=== PATIENT | female | born 1970 | race Asian ===

== ENCOUNTER 2023-06-11 05:53 | Inpatient (IN) | payer OTHER, SELFPAY ==
[2023-06-11] VITALS (10 sets, daily range): BP systolic 104–166; BP diastolic 58–80; BMI 23.4
[2023-06-11 02:16] LABS: Urine Albumin Trace (Neg - Trace); Urine Bilirubin Negative (Negative); Urine Character Slightly Cloudy (Clear); Urine Color Yellow; Urine Glucose Negative (Negative); Urine Ketone Negative (Negative); Urine Leukocyte 2+ (Negative); Urine Nitrite Positive (Negative); Urine Occult Blood 1+ (Negative); Urine Urobilinogen Negative (Neg - 1+); Urine pH 6.5 (5.0-9.0)
--- NOTE | 2023-06-11 03:06 | ED.GENMED ---
History of Present Illness
<LISBET Sapp - Last Filed: 06/11/23 03:12>
General
Chief Complaint: Fever
Source: patient
Exam Limitations: none
Time Seen by Provider: 06/11/23 02:56
Nursing documentation reviewed up to this point in time: agreed with
Travel History
Have you had any contact with someone who has COVID-19?: No
Do you have any symptoms of coronavirus? Fever > 100 degrees, chills, cough, shortness of breath, sore throat, loss of taste or smell, muscle aches, or headache?: No
History of Present Illness
History of Present Illness:
patient is a 52 y/o female with PMH of kidney transplant in 2018 presenting with a fever. Patient noticed her fever this past evening when she had severe chills. Patient states she did not take her temperature but she was having severe chills at
home. Patient states she took a Tylenol at 10:30 pm. Patient admits to burning with urination. Patient denies frequency or urgency. Patient admits to mild abdominal pain. Patient states the abdominal pain was not localized. Patient admits to two
bouts of vomiting since the onset of fever. Patient denies MONTERO, SOB, CO, D/C, sore throat, cough, rhinorrhea. Patient denies any recent sick contacts. Patient denies any recent changes in medication. Patient admits the last time she ate or drank was
around 6:30pm.
Review of Systems
<LISBET Sapp - Last Filed: 06/11/23 03:12>
Review of Systems
Constitutional: Reports fever and chills
EENT: Reports no symptoms
Respiratory: Reports no symptoms
Cardiac: Reports no symptoms
ABD/GI: Reports nausea and vomiting
: Reports dysuria
Musculoskeletal: Reports no symptoms
Skin: Reports no symptoms
Neurological: Reports no symptoms
Endocrine: Reports no symptoms
Hematologic/Lymphatic: Reports no symptoms
Psychiatric: Reports no symptoms
Phy Exam
<Elda Navawson [facility] - Last Filed: 06/11/23 03:12>
General Physical Exam
General Presentation: mild distress
General age: appears stated age
General Skin: feels hot
General Habitus: normal
General Mental: alert
General Hydration: appears well hydrated
ENT Exam
ENT Exam: EOMI, pharynx normal, neck supple and normocephalic
Eye Exam
Eye Exam: PERRL, cornea clear and conjunctiva normal
Cardiovascular Exam
Cardiovascular Exam: tachycardia
Pulmonary Exam
Pulmonary Exam: lungs clear, no respiratory distress, no rales, no crackles, no rhonchi, no stridor, no wheezing and no cough
Gastrointestinal Exam
Gastrointestinal Exam: normal bowel sounds and non tender
Neurological Exam
Neurological Exam: alert, oriented x3, no motor deficits and speech normal
Musculoskeletal Exam
Musculoskeletal Exam: full ROM and no edema
Skin Exam
Skin Exam: normal color, warm/dry, no rash and no petechia
Psychiatric Exam
Psychiatric Exam: normal mood/affect
Course
<Elda Cuellar [facility] - Last Filed: 06/11/23 03:12>
Orders/Labs/Results
Orders:
Orders
06/11/23 02:08
Urinalysis Reflex To Culture Urgent
Date Specimen was Collected: 06/11/23
Time Specimen was Collected: 02:07
Urine Microscopic Reflex Cult Urgent
Urine Culture Urgent
JUSTIN Source: U
Specimen Description:
Date Specimen was Collected: 06/11/23
Time Specimen was Collected: 02:07
06/11/23 03:03
Electrocardiogram (*1) Urgent
Reason for Study: Other
Other Reason for Exam: Possible Sepsis
Cardiac Monitoring- Treatment ONCE
EKG- Treatment ONCE
IV Insert/Care/Rem.- Treatment PRN
O2 Therapy [RESP] Urgent
Titrate/Wean O2 to maintain O2 sat greater than (%): 93
Special Instructions: TO MAINTAIN CONTINUOUS O2 SATS > OR = 93%
Pulse Ox/cont/shift [RESP] Urgent
Quantity: 1
Special Instructions: CONTINUOUS
06/11/23 03:16
COVID-19 Antigen Urgent
Source: Nasal Swab
Complete Blood Count/With Diff Urgent
Comprehensive Metabolic Panel Urgent
Lactic Acid Q4H
Comment: ON ICE, CANCEL 2ND ORDER IF FIRST LACTIC ACID LEVEL <2
Blood Culture Q30M
JUSTIN Source: Blood/Venous
Specimen Description:
Comment: FROM 2 SEPARATE SITES
Blood Culture Q30M
JUSTIN Source: Blood/Venous
Specimen Description:
Comment: FROM 2 SEPARATE SITES
Influenza A+B Rapid Molecular Urgent
JUSTIN Source: Nasal Swab
Specimen Description:
Abnormal Lab Results
06/11/23 06/11/23
02:08 03:16
RBC 3.17 L 10^6/uL
(4.20-5.40)
Hgb 9.9 L g/dL
(12.0-16.0)
Hct 28.8 L %
(37.0-47.0)
MCH 31.2 H pg
(27.0-31.0)
Absolute Neuts (auto) 8.3 H 10^3/uL
(1.4-6.5)
Absolute Lymphs (auto) 0.3 L 10^3/uL
(1.2-3.4)
Neutrophils % 94.8 H %
(42.2-75.2)
Lymphocytes % 3.4 L %
(20.5-51.1)
Monocytes % 0.8 L %
(1.7-9.3)
Potassium 3.1 L mmol/L
(3.5-5.1)
BUN 49 H mg/dl
(7-17)
Creatinine 1.1 H mg/dL
(0.6-1.0)
Glucose 122 H mg/dl
(70-99)
Ur Occult Blood Reflex 1+ A
(Negative)
Urine Nitrite (Reflex) Positive A
(Negative)
Leukocyte Esterase Rfl 2+ A
(Negative)
Urine RBC 7-10 A /HPF
(0-2)
Urine WBC (Reflex) 11-15 A /HPF
(0-5)
Urine Bacteria (Reflex) Moderate A
(Negative)
06/11/23 03:16
06/11/23 03:16
Vital Signs
Initial and Last Documented VS:
Initial Vital Signs
Temp Pulse Resp BP Pulse Ox
101.4 F H 125 20 137/70 95
06/11/23 01:55 06/11/23 01:55 06/11/23 01:55 06/11/23 01:55 06/11/23 01:55
Last Documented Vital Signs
Temp Pulse Resp BP Pulse Ox
101.4 F H 109 18 121/60 95
06/11/23 01:55 06/11/23 04:30 06/11/23 03:15 06/11/23 04:00 06/11/23 01:55
<Andi Houston, DO - Last Filed: 06/11/23 05:10>
Orders/Labs/Results
Orders:
Orders
06/11/23 02:08
Urinalysis Reflex To Culture Urgent
Date Specimen was Collected: 06/11/23
Time Specimen was Collected: 02:07
Urine Microscopic Reflex Cult Urgent
Urine Culture Urgent
JUSTIN Source: U
Specimen Description:
Date Specimen was Collected: 06/11/23
Time Specimen was Collected: 02:07
06/11/23 03:03
Electrocardiogram (*1) Urgent
Reason for Study: Other
Other Reason for Exam: Possible Sepsis
Cardiac Monitoring- Treatment ONCE
EKG- Treatment ONCE
IV Insert/Care/Rem.- Treatment PRN
O2 Therapy [RESP] Urgent
Titrate/Wean O2 to maintain O2 sat greater than (%): 93
Special Instructions: TO MAINTAIN CONTINUOUS O2 SATS > OR = 93%
Pulse Ox/cont/shift [RESP] Urgent
Quantity: 1
Special Instructions: CONTINUOUS
06/11/23 03:16
COVID-19 Antigen Urgent
Source: Nasal Swab
Complete Blood Count/With Diff Urgent
Comprehensive Metabolic Panel Urgent
Lactic Acid Q4H
Comment: ON ICE, CANCEL 2ND ORDER IF FIRST LACTIC ACID LEVEL <2
Blood Culture Q30M
JUSTIN Source: Blood/Venous
Specimen Description:
Comment: FROM 2 SEPARATE SITES
Blood Culture Q30M
JUSTIN Source: Blood/Venous
Specimen Description:
Comment: FROM 2 SEPARATE SITES
Influenza A+B Rapid Molecular Urgent
JUSTIN Source: Nasal Swab
Specimen Description:
Abnormal Lab Results
06/11/23 06/11/23
02:08 03:16
RBC 3.17 L 10^6/uL
(4.20-5.40)
Hgb 9.9 L g/dL
(12.0-16.0)
Hct 28.8 L %
(37.0-47.0)
MCH 31.2 H pg
(27.0-31.0)
Absolute Neuts (auto) 8.3 H 10^3/uL
(1.4-6.5)
Absolute Lymphs (auto) 0.3 L 10^3/uL
(1.2-3.4)
Neutrophils % 94.8 H %
(42.2-75.2)
Lymphocytes % 3.4 L %
(20.5-51.1)
Monocytes % 0.8 L %
(1.7-9.3)
Potassium 3.1 L mmol/L
(3.5-5.1)
BUN 49 H mg/dl
(7-17)
Creatinine 1.1 H mg/dL
(0.6-1.0)
Glucose 122 H mg/dl
(70-99)
Ur Occult Blood Reflex 1+ A
(Negative)
Urine Nitrite (Reflex) Positive A
(Negative)
Leukocyte Esterase Rfl 2+ A
(Negative)
Urine RBC 7-10 A /HPF
(0-2)
Urine WBC (Reflex) 11-15 A /HPF
(0-5)
Urine Bacteria (Reflex) Moderate A
(Negative)
06/11/23 03:16
06/11/23 03:16
Vital Signs
Initial and Last Documented VS:
Initial Vital Signs
Temp Pulse Resp BP Pulse Ox
101.4 F H 125 20 137/70 95
06/11/23 01:55 06/11/23 01:55 06/11/23 01:55 06/11/23 01:55 06/11/23 01:55
Last Documented Vital Signs
Temp Pulse Resp BP Pulse Ox
101.4 F H 109 18 121/60 95
06/11/23 01:55 06/11/23 04:30 06/11/23 03:15 06/11/23 04:00 06/11/23 01:55
<LISBET Sapp - Last Filed: 06/11/23 03:12>
MDM/Problems Addressed
Differential Diagnosis Includes:
acute cystitis
pyelonephritis
viral infection
MDM/Problems Addressed:
fever
Rafaellt;LISBET Sapp - Last Filed: 06/11/23 03:12>
*Critical Care Note
Total Time (30-74mins, 75-104mins- exclusive of procedures): Not Applicable
ED Attending Note
<Elda LISBET Cuellar - Last Filed: 06/11/23 03:12>
-
Portions of this chart may have been created with voice recognition software.� Occasional wrong word or��sound alike� substitutions may have occurred due to the inherent limitations of voice recognition software.
<Andi Houston DO - Last Filed: 06/11/23 05:10>
ED Attending Note
Patient seen and examined by attending physician: Yes
I performed the substantive portion of visit, reviewed & personally made and approve the management plan that is documented in note by myself or IGGY.: Yes
ED Attending Note:
Pleasant 52-year-old female presents with fever and dysuria. She also had chills while at home. She took Tylenol and admitted to burning with urination. Patient had a kidney transplant in 2018 at [facility] is concerned that she
might have a UTI. She did report some mild abdominal pain. Patient did report some vomiting earlier in the evening. Patient has been n.p.o. due to her symptoms since 630. Patient was seen in conjunction with the PA student. I have reviewed and
agree with the history and treatment plan presented. On my independent physical exam, patient is awake, alert, and oriented x3 somnolent. Skin is flushed. Abdomen is soft with generalized tenderness to palpation. Moves all 4 extremities.
present at bedside.
Plan is to admit patient to hospital service for UTI with a kidney transplant.
Discharge Plan
Departure
Patient Disposition: Admit
Date of Disposition: 06/11/23
Time of Disposition: 05:07
Presentation/result/management discussed w/ accepting MD/DO: Hospitalist
Condition: Good
Discharge Problem:
UTI (urinary tract infection), Kidney transplanted
Referrals:
PRIVATE,PHYSICIAN [Family Provider] -
Interventions
Interventions:
*Risk Screen - Suicide Last Done: 06/11/23 01:55
*General Assessment Last Done: 06/11/23 03:38
*Neglect/Abuse Screening Last Done: 06/11/23 01:55
ED- Fall Risk Assessment Last Done: 06/11/23 03:36
*ED COVID-19 Vaccine History Last Done: 06/11/23 01:55
ED- Neurological Assessment Last Done: 06/11/23 03:36
ED-Skin Assessment Last Done: 06/11/23 03:36
Discharge Date and Time
Print Language: INDONESIAN
[2023-06-11 03:26] LABS: % Basophils 0.5 % (0-2); % Eosinophils 0.2 % (0-6); % Immature Granulocytes 0.3 % (0-0.5); % Lymphocytes 3.4 % (20.5-51.1); % Monocytes 0.8 % (1.7-9.3); % Neutrophils 94.8 % (42.2-75.2); Absolute Lymphocytes 0.3 10^3/uL (1.2-3.4); Absolute Monocytes 0.1 10^3/uL (0.1-0.6); Absolute Neutrophils 8.3 10^3/uL (1.4-6.5); Hematocrit 28.8 % (37.0-47.0); Hemoglobin 9.9 g/dL (12.0-16.0); Mean Corp Hgb Conc. 34.4 g/dL (33.0-37.0); Mean Corpuscular Hgb 31.2 pg (27.0-31.0); Mean Corpuscular Volume 90.9 fL (81.0-99.0); Mean Platelet Volume 9.7 fL (7.4-10.4); Nucleated Red Blood Cells % 0 %; Platelet Count 164 10^3/uL (130-400); Red Blood Cell Count 3.17 10^6/uL (4.20-5.40); Red Cell Dist. Width 12.6 % (11.5-14.5); White Blood Cell Count 8.8 10^3/uL (4.8-10.8)
[2023-06-11 03:26] LABS: Urine Squamous Cell 0-2 /LPF (Few)
[2023-06-11 03:29] LABS: Urine Bacteria Moderate (Negative)
[2023-06-11 03:42] LABS: ALT (SGPT) 15 U/L (0-35); AST (SGOT) 21 U/L (14-36); Alkaline Phosphatase 85 U/L (38-126); Blood Urea Nitrogen 49 mg/dl (7-17); Carbon Dioxide 24 mmol/L (22-30); Chloride 105 mmol/L (98-107); Glucose 122 mg/dl (70-99); Potassium 3.1 mmol/L (3.5-5.1); Sodium 141 mmol/L (135-145); Total Bilirubin 0.8 mg/dl (0.2-1.3); Total Protein 6.7 g/dl (6.3-8.2); eGFR > 60.00
[2023-06-11 03:53] LABS: COVID-19 Antigen Negative (Negative)
[2023-06-11] MEDS: TYLENOL 650 MG PO ×4 (05:21→21:45)
[2023-06-11] MEDS: MAXIPIME 2000 MG IV ×3 (05:21→21:39)
[2023-06-11] MEDS: GENTAMICIN 53.125 MG IV (05:31)
--- NOTE | 2023-06-11 05:35 | HPS.HSE ---
Family Physician
-
Family Physician: PHYSICIAN PRIVATE
Chief Complaint
-
chill and fever
History of Present Illness
52F from Home HX Kidney TP since 2018 pw severe chills and feverish last evining at home. Did not check temp but took tylenol. At ER T 101.4. Reports dysuria but no frequency. Noted associated with abdominal pain and vomited x 2.
ROS
Denies MONTERO, SOB, CO, D/C, sore throat, cough, rhinorrhea.
No recent sick contacts.
Medical History
Past Medical History
Past Medical History: Reports Other (Kidney TP since 2018 )
Past Surgical History: Reports Other (Kidney TP since 2018 [facility] )
Social History
Tobacco: Non-smoker
Alcohol: None
Family History
Family History: Not pertinent
Allergies / Home Medications
Allergies reflects when Allergies were last updated in [email or web address].
Home Medications with original date entered in [email or web address]
Allergy/Medication List:
Allergies
Allergy/AdvReac Type Severity Reaction Status Date / Time
No Known Allergies Allergy Unverified 06/11/23 01:54
If Other, explain: Pending Rx reconcilliation
Review of Systems
-
Constitutional: Reports Fever and Chills
EENT: Reports No Symptoms
Respiratory: Reports No Symptoms
Cardiac: Reports No Symptoms
Abdomen/GI: Reports Abdominal Pain
: Reports No Symptoms
Musculoskeletal: Reports No Symptoms
Skin: Reports No Symptoms
Neurological: Reports No Symptoms
Endocrine: Reports No Symptoms
Hematologic/Lymphatic: Reports No Symptoms
Psych: Reports No Symptoms
Physical Exam
Vital Signs
Vital Signs
Temp Pulse Resp BP Pulse Ox
101.4 F H 109 18 121/60 95
06/11/23 01:55 06/11/23 04:30 06/11/23 03:15 06/11/23 04:00 06/11/23 01:55
Physical Exam
General: Appears in Distress (mild) and Other (puffy face )
HEENT: NormoCephalic, Anicteric and Moist mucous membranes
Respiratory: Clear; No Wheezes, Rales or Rhonchi
Cardiac: S1/S2, Regular Rhythm and Tachycardia; No Murmur
Breast: Deferred by me
GI: Soft, Non Tender, Non Distended and Normal Bowel Sounds
Rectal: Deferred by Provider
Musculoskeletal: No Edema
Skin: Warm and Dry
Neuro: AO x 3
Psych: Calm
Laboratory Results
-
06/11/23 03:16
06/11/23 03:16
Laboratory Results
Lactic Acid Cancelled 06/11/23 07:15
Total Bilirubin 0.8 mg/dl (0.2-1.3) 06/11/23 03:16
AST 21 U/L (14-36) 06/11/23 03:16
ALT 15 U/L (0-35) 06/11/23 03:16
Alkaline Phosphatase 85 U/L (38-126) 06/11/23 03:16
Data Reviewed
-
Medical Tests (Nuc Med, Echo, EKG etc): Report Reviewed by me
Lab Data: Labs Reviewed by me
Impression/Plan
-
Reviewed VS: T 101.4 HR 110 BP 120/60 RR 18
Data
nl WCC
Hgb 9.9 - no prior Hgb in [employer]
K 3.1
BUN 49
Cr 1.1
eGFR > 60
nl LFTs
Abn UA suspect UTI
UCx sent
BCx sent
NEG Covid
Pending EKG
No prior admission to
ASSESSMENT & PLAN
Sepsis ( T 101.4, ST 110) due to complicated UTI
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
Normal RFTs
- agree with IV CFP 2gm q8h
- IVF
- f/u VSS
- f/u UCx, BCx
- ID consult
Anemia of uncertain chronicity
- Observe Hgb
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
- Obtain records from [facility]
- Renal consult
Pending Rx reconciliation
DVT Px: SCD
Code: Full code
IP TLM
[2023-06-11] MEDS: NSS 1000 IV ×2 (07:55→21:52)
[2023-06-11] MEDS: KCL 270 MEQ IV (08:11)
[2023-06-11 08:20] LABS: Lactic Acid 1.3 mmol/L (0.7-2.0)
[2023-06-11] MEDS: DELTASONE 5 MG PO (08:58)
[2023-06-11] MEDS: NEORAL 50 MG PO (08:58)
[2023-06-11] MEDS: NEORAL 100 MG PO ×2 (08:58→20:28)
--- NOTE | 2023-06-11 11:04 | W.PN.UPDATE ---
Update Note
Progress Note Update
Seen and examined independent of overnight physician. Patient states of nausea. Mild abdominal discomfort. Had bowel movement earlier today. States of dysuria. Denies any flank or back pain. No sick contact.
General in mild acute distress, eyes closed
Cardiac S1-S2 regular rate rhythm
Lungs clear to auscultation frontally
Abdomen positive bowel sounds soft nontender nondistended
Extremities no edema
Neuro awake alert and oriented
#Sepsis likely secondary to UTI
#Chronic immunosuppressant state
#On chronic prednisone
Lactic acid within normal limits
Continue with gentle IV fluids
Monitor blood pressure closely. If any episodes of hypotension will need to start stress dose steroids. Holding BP meds for now.
Continue with cefepime
No imaging done. Check renal bladder ultrasound
ID has been consulted
Follow-up on the culture data
#Nausea and vomiting likely secondary gastroenteritis
Check abdominal x-ray for now
If no improvement check CT abdomen pelvis without IV contrast
#Anemia
Unclear baseline
Check anemia panel
#Renal transplant 2018
#Elevated creatinine�unclear baseline
Continue prednisone and cyclosporine
IV fluids
Nephrology has been consulted
#Hyperlipidemia
Continue statin
#Primary hypertension
Hold BP meds for now
#Hypokalemia
Replete and monitor
DVT ppx-started lovenox
Discussed with at bedside in detail
[2023-06-11 11:32] LABS: Iron 35 ug/dl (37-170)
[2023-06-11 11:41] LABS: Percent Saturation 12 % (20-50); Total Iron Binding Capacity 287 ug/dl (265-497)
[2023-06-11 12:41] LABS: Folate 10.2 ng/ml (2.76-20); Vitamin B12 831 pg/ml (239-931)
--- NOTE | 2023-06-11 13:00 | W.CON.NEPH ---
Consultation
-
Date/Time Consultation Requested: June 11, 2023 9 AM
Date/Time Consultation Performed: June 11, 2023 1 PM
Requesting Provider: Dr. Davis
Performing Provider: Dr. Carranza
Reason for Consultation: Renal transplant
Medical History
-
Chief Complaint: Renal transplant
History of Present Illness:
This is a 52-year-old female who has met in the past who underwent living unrelated renal transplant back in 2018 at [facility] as part of a kidney swap with her and another pair. They do not recall details of that
transplant though she has always been maintained on only cyclosporine and prednisone. She has had no episodes of rejection in the last 6 years. Recently, she has had 2 urinary tract infections. She has hypertension on a multidrug regimen which is
typically well-controlled as well as statin therapy for hyperlipidemia. This is usually also controlled. She had previously been on Cinacalcet for tertiary hyperparathyroidism though this had subsequently resolved. She came to the emergency room
and was admitted because of fevers and infection/sepsis. 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
Past Medical History
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
Social History
Tobacco: Non-Smoker
Alcohol: None
Family History
Family History: Not Pertinent
Allergies / Home Medications
Allergy/AdvReac Type Severity Reaction Status Date / Time
No Known Allergies Allergy Unverified 06/11/23 01:54
�Medication �Instructions �Recorded �Confirmed �Type
cyclosporine modified 50 mg capsule 150 mg PO BID 06/11/23 06/11/23 History
losartan 50 mg tablet 50 mg PO DAILY 06/11/23 06/11/23 History
nifedipine 30 mg tablet,extended 30 mg PO DAILY 06/11/23 06/11/23 History
release
prednisone 5 mg tablet 5 mg PO DAILY 06/11/23 06/11/23 History
rosuvastatin 5 mg tablet 5 mg PO DAILY 06/11/23 06/11/23 History
Review of Systems
-
Fevers and chills. Mild nausea. No issues with urination. No pain over transplanted kidney. No shortness of breath or chest pain. The remainder of the complete review of systems was negative
Physical Exam
Vital Signs
Vital Signs
Temp Pulse Resp BP Pulse Ox
98 F 105 18 127/71 92
06/11/23 11:42 06/11/23 11:42 06/11/23 11:42 06/11/23 11:42 06/11/23 11:42
Lab Results
WBC 8.8 10^3/uL (4.8-10.8) 06/11/23 03:16
RBC 3.17 10^6/uL (4.20-5.40) L 06/11/23 03:16
Hgb 9.9 g/dL (12.0-16.0) L 06/11/23 03:16
Hct 28.8 % (37.0-47.0) L 06/11/23 03:16
Plt Count 164 10^3/uL (130-400) 06/11/23 03:16
Sodium 141 mmol/L (135-145) 06/11/23 03:16
Potassium 3.1 mmol/L (3.5-5.1) L 06/11/23 03:16
Chloride 105 mmol/L (98-107) 06/11/23 03:16
Carbon Dioxide 24 mmol/L (22-30) 06/11/23 03:16
BUN 49 mg/dl (7-17) H 06/11/23 03:16
Creatinine 1.1 mg/dL (0.6-1.0) H 06/11/23 03:16
eGFR > 60.00 06/11/23 03:16
Glucose 122 mg/dl (70-99) H 06/11/23 03:16
Calcium 10.0 mg/dl (8.4-10.2) 03/29/24 03:16
Albumin 4.0 g/dl (3.5-5.0) 06/11/23 03:16
Physical Exam
General: AOx3 and No Distress
HEENT: PERRL, EOMI, Anicteric, Oropharynx Clear/Moist, Neck Supple, Trachea Midline, No JVD and No Thyromegaly
Respiratory: Clear
Abdomen: Soft, Nontender, Nondistended, Normal Bowel Sounds and No Hepatosplenomegaly
Skin: No Rash, No Cyanosis and Normal Turgor
Psych: Mood/afflect pleasant and Insight/judgement good
Assessment/Plan
-
Assessment:
Acute kidney injury
Living unrelated renal transplant right lower [facility] 2007 baseline creatinine 0.8
Hypertension
Hyperlipidemia
Fever
Assessment:
Cultures are pending.
Empiric antibiotics
Follow basic metabolic panel
She reports ciclosporin to be 125 mg twice daily which I will adjust. A cyclosporine trough level will be ordered.
Cyclosporine and prednisone will be continued.
Losartan will be continued for the time being.
IV fluids with saline will be continued
Check fractional excretion of sodium
Data Reviewed
-
Radiology: Image Personally Visualized and interpreted (Abdominal x-ray on June 11, 2023 by my reading shows no obstruction, no air-fluid levels)
Medical Tests (Nuc Med, Echo etc): Image Personally Visualized and interpreted (EKG on June 11, 2023 by my reading shows sinus tachycardia LVH inferior ST-T wave abnormalities)
Labs: Labs Reviewed by me
Old Records: Reviewed
[2023-06-11] MEDS: STERILE WATER FOR INJECTION 10 ML IV ×2 (13:54→21:39)
--- NOTE | 2023-06-11 14:25 | CON.ID ---
Consultation
-
Date/Time Consultation Requested: 06/11/2023 07:40
Date/Time Consultation Performed: 06/11/2023 1421
Requesting Provider: Dr. Davis
Performing Provider: Dr. See
Reason for Consultation: Sepsis
Chief Complaint / Past History
History of Present Illness
Frances Cuellar is a 52-year-old female with a significant past medical history of renal transplant (2018) being evaluated in regards to fever. History is obtained from chart review, along with patient interview.
Patient presenting usual state of health until day before admission when she developed severe chills while at home. She also admits to dysuria over the 24 hours prior to admission, but denied any frequency or urgency. She admits to mild abdominal
discomfort which was nonlocalizing. No History of Discomfort over the Transplant. She admits to 2 episodes of vomiting. No History of Rigors. Positive Temperature to 101 Degrees.
Workup in the ER revealed a normal white count although urinalysis showed pyuria. Blood cultures obtained at the time of admission are now positive for gram-negative rods, and Infectious Diseases is asked to comment upon further antimicrobial
therapy.
Past History
Additional Past Medical History:
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
HTN
Dyslipidemia
Additional Past Surgical History:
Renal transplant (2018; [facility])
LUE AV fistula
Allergy History:
No Known Allergies Allergy (Unverified 06/11/23 01:54)
Medications Reviewed: Yes
Current Antibiotics:
Cefepime 2 g IV every 8 hours
Gentamicin x 1
Social History
Tobacco: Non-Smoker
Alcohol: None
Drug: None
Review of Systems
Vital Signs
Temp Pulse Resp BP Pulse Ox
98 F 105 18 127/71 92
06/11/23 11:42 06/11/23 11:42 06/11/23 11:42 06/11/23 11:42 06/11/23 11:42
Physical Exam
Physical Exam
Constitutional: No Acute Distress, Well Developed, Comfortable and Non-toxic
Head: Normocephalic
Eyes: Pupils Equal, Pupils Round, No Conjunctival Hemorrhage and Sclera Anicteric
Oral: No Thrush and No Ulcers
Cardiovascular: Regular Rate and S1/S2; Negative S3/S4
Pulmonary: Clear; Negative Wheezes, Rales or Rhonchi
Gastrointestinal: Soft, Non Tender, Non Distended, Normal Bowel Sounds, No Rebound, No Guarding and Other (No tenderness over transplant.)
Genito-Urinary: Negative Jack
Extremities: Negative Edema, Cyanosis, Erythema, Splinter Hemorrhage or Venous Insufficiency
Skin: Warm and Dry; Negative Rash or Jaundice
Neurological: Awake, Alert and Oriented
Psychological: Calm
.
Lab / Diagnostic Study Results
06/11/23 03:16
06/11/23 03:16
Abs Immat Gran (auto) 0.0 10^3/uL (0-0.05) 06/11/23 03:16
Absolute Neuts (auto) 8.3 10^3/uL (1.4-6.5) H 06/11/23 03:16
Absolute Lymphs (auto) 0.3 10^3/uL (1.2-3.4) L 06/11/23 03:16
Absolute Monos (auto) 0.1 10^3/uL (0.1-0.6) 06/11/23 03:16
Absolute Basos (auto) 0.0 10^3/uL (0-0.2) 06/11/23 03:16
Immature Gran % 0.3 % (0-0.5) 06/11/23 03:16
Neutrophils % 94.8 % (42.2-75.2) H 06/11/23 03:16
Lymphocytes % 3.4 % (20.5-51.1) L 06/11/23 03:16
Monocytes % 0.8 % (1.7-9.3) L 06/11/23 03:16
Eosinophils % 0.2 % (0-6) 06/11/23 03:16
Basophils % 0.5 % (0-2) 06/11/23 03:16
Lactic Acid Cancelled 06/11/23 19:40
Ur Squamous Epith Cells 0-2 /LPF (Few) 06/11/23 02:08
Microbiology Results
Micro:
06/11/23 03:16 Blood Culture - Preliminary
Blood/Venous Positive culture in progress
Gram Stain - Final
06/11/23 03:16 Blood Culture - Preliminary
Blood/Venous Positive culture in progress
Gram Stain - Preliminary
06/11/23 03:16 Influenza Types A & B (CALVIN) - Final
Nasal Swab Negative for Influenza A & B, NAAT
Negative results must be combined with clinical observations
and patient history.
Nucleic Acid Amplification test (NAAT)performed on the
[employer] NOW platform.
06/11/23 02:08 Urine Culture - Pending
Urine
Imaging:
06/11/2023 abdominal x-ray: No abnormal intestinal dilatation or air-fluid levels identified. Air and stool seen in the level of the rectum. Please see full dictation for additional detail.
Assessment / Plan
Bacteremia
Fevers/chills
Suspected complicated urinary tract infection
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
HTN
Dyslipidemia
Recommendations:
Continue with cefepime, although decreased dose to 2 g IV every 12 hours.
Repeat blood cultures.
Check ultrasound of abdomen to assess for hydronephrosis
Monitor white count and temperature curve
--- NOTE | 2023-06-11 14:53 | CM ---
Alert awake oriented patient who lives with Quan in a 2 story home with 1 step to enter and 12 steps to bed room . She is independent in driving and all activities of daily living.No DME. Offered VN she declined.
No SNF/VN hx
Pharmacy [facility]
PCP Dr Allen
PLAN Home no needs
--- NOTE | 2023-06-11 16:07 | PTCARENOTE ---
Dr. Sarkar notified about BP of 162/80. Would like to monitor for now.
[2023-06-11] MEDS: LOVENOX 40 MG SC (17:09)
[2023-06-11] MEDS: NEORAL 25 MG PO (20:28)
[2023-06-12] MEDS: TYLENOL 650 MG PO ×2 (02:18→10:50)
[2023-06-12 03:00] VITALS: BP 143/80
[2023-06-12] MEDS: MAXIPIME 2000 MG IV ×3 (05:51→21:02)
[2023-06-12] MEDS: STERILE WATER FOR INJECTION 10 ML IV ×3 (05:51→21:02)
[2023-06-12 06:00] VITALS: BMI 23.9
[2023-06-12 07:29] VITALS: BP 137/78
[2023-06-12 08:21] LABS: Hematocrit 29.7 % (37.0-47.0); Hemoglobin 10.3 g/dL (12.0-16.0); Mean Corp Hgb Conc. 34.7 g/dL (33.0-37.0); Mean Corpuscular Hgb 31.7 pg (27.0-31.0); Mean Corpuscular Volume 91.4 fL (81.0-99.0); Nucleated Red Blood Cells % 0 %; Red Blood Cell Count 3.25 10^6/uL (4.20-5.40); White Blood Cell Count 16.5 10^3/uL (4.8-10.8)
[2023-06-12] MEDS: NEORAL 25 MG PO ×2 (08:31→20:48)
[2023-06-12] MEDS: NEORAL 100 MG PO ×2 (08:31→20:47)
[2023-06-12] MEDS: CRESTOR 5 MG PO (08:32)
[2023-06-12] MEDS: PROCARDIA XL (EXTENDED RELEASE) 30 MG PO (08:32)
[2023-06-12] MEDS: DELTASONE 5 MG PO (08:32)
[2023-06-12 08:37] LABS: ALT (SGPT) 15 U/L (0-35); AST (SGOT) 25 U/L (14-36); Albumin 3.3 g/dl (3.5-5.0); Alkaline Phosphatase 68 U/L (38-126); Blood Urea Nitrogen 37 mg/dl (7-17); Calcium 8.6 mg/dl (8.4-10.2); Carbon Dioxide 16 mmol/L (22-30); Chloride 113 mmol/L (98-107); Estimated Creatinine Clearance 31 ml/min; Glucose 90 mg/dl (70-99); Potassium 4.7 mmol/L (3.5-5.1); Sodium 136 mmol/L (135-145); Total Bilirubin 1.2 mg/dl (0.2-1.3); Total Protein 5.8 g/dl (6.3-8.2); eGFR 33.27
[2023-06-12] MEDS: NSS 1000 IV (10:50)
--- NOTE | 2023-06-12 11:35 | W.PN.HOSP.TC ---
Today's Communication/Plan
-
IV fluid per nephrology
Continue with antibiotic
Follow-up on the susceptibility results
Follow-up on the surveillance cultures
Assessment / Plan
Assessment / Plan
#Sepsis likely secondary to E. coli pyelonephritis leading to bacteremia
#Chronic immunosuppressant state
#On chronic prednisone
Lactic acid within normal limits
Continue with gentle IV fluids
Monitor blood pressure closely. If any episodes of hypotension will need to start stress dose steroids. Holding BP meds for now.
Continue with cefepime
CT abdomen pelvis with pyelonephritis of renal transplant
ID has been consulted
Follow-up on the culture data
#Nausea and vomiting likely secondary gastroenteritis versus pyelonephritis pain
IV fluids per nephrology
Monitor for diet tolerance
#Anemia
Unclear baseline
Check anemia panel
#Renal transplant 2018
# Acute kidney injury
# Metabolic acidosis likely secondary to acute kidney injury and vomiting
Continue prednisone and cyclosporine
IV fluids
Creatinine bumped to 1.8.
May need to consider switching to bicarb drip. Will defer to nephrology
Nephrology has been consulted
#Hyperlipidemia
Continue statin
#Primary hypertension
Restart Procardia as blood pressure tolerated
Will defer losartan to nephrology
#Hypokalemia
Replete and monitor
DVT ppx-started lovenox
Discussed with at bedside in detail
Anticipated Discharge: > 48 hours
Subjective/Interval History
-
Date of Service: June 12, 2023
States of lower abdominal discomfort
Remains with nausea and vomiting
Had regular soft bowel movement
Denies diarrhea
Objective Data
-
Labs:
Laboratory Results
06/12/23
08:14
WBC 16.5 H
Hgb 10.3 L
Hct 29.7 L
Plt Count Pending
Sodium 136
Potassium 4.7 D
Chloride 113 H
Carbon Dioxide 16 L
BUN 37 H
Creatinine 1.8 H
Glucose 90
Calcium 8.6
Total Bilirubin 1.2
AST 25
ALT 15
Alkaline Phosphatase 68
Vital Signs:
Vital Signs
Temp Pulse Resp BP Pulse Ox
99.6 F 93 16 137/78 94
06/12/23 07:29 06/12/23 07:29 06/12/23 07:29 06/12/23 07:29 06/12/23 07:29
I&O
06/11/23 06/12/23 06/13/23
06:59 06:59 06:59
Intake Total 1759 / 1759
Balance 1759
Physical Exam
-
General: Well Developed and No Apparent Distress
HEENT: Normocephalic, Atraumatic and Moist Mucous Membranes
Respiratory: Clear to Auscultation
Cardiac: Regular Rhythm and S1/S2; Negative Murmur, Rub or Gallop
GI: Soft, Nontender, Nondistended and Normal Bowel Sounds; Negative Organomegaly
Rectal: Deferred by Provider
Musculoskeletal: No Clubbing, No Cyanosis and No Edema
Skin: Negative Rash
Neuro: Awake, AO x 3, No Motor Deficits and Nonfocal/Grossly Intact
Psych: Calm
Data Reviewed
-
Total Time Spent with Patient (in minutes): 62
[2023-06-12 11:49] VITALS: BP 117/63
--- NOTE | 2023-06-12 12:43 | W.PN.NEPH.PH ---
Today's Communication / Plan
-
IVF
Assessment/Plan
-
Assessment:
Acute kidney injury
Living unrelated renal transplant right lower quadrant [facility] 2007 baseline creatinine 0.8
Hypertension
Hyperlipidemia
Fever
Assessment:
rapid growth of E coli in blood and urine
cephalosporins for Ecoli
Follow basic metabolic panel
Await cyclosporine trough level
Cyclosporine and prednisone will be continued
hold losartan
IV fluids with saline will be continued
Check fractional excretion of sodium
no significant hydro of tx
-
-
Date of Service: June 12, 2023
CC / HPI / ROS
-
Chief Complaint:
CORAL
History of Present Illness:
COARL/Cr worse to 1.8
on abx for e coli urosepsis
BP stable
now with metabolic acidosis
Review of Systems:
no CP/SOB
some abdominal discomfort
Labs
-
Labs:
WBC 16.5 10^3/uL (4.8-10.8) H 06/12/23 08:14
RBC 3.25 10^6/uL (4.20-5.40) L 06/12/23 08:14
Hgb 10.3 g/dL (12.0-16.0) L 06/12/23 08:14
Hct 29.7 % (37.0-47.0) L 06/12/23 08:14
Sodium 136 mmol/L (135-145) 06/12/23 08:14
Potassium 4.7 mmol/L (3.5-5.1) D 06/12/23 08:14
Chloride 113 mmol/L (98-107) H 06/12/23 08:14
Carbon Dioxide 16 mmol/L (22-30) L 06/12/23 08:14
BUN 37 mg/dl (7-17) H 06/12/23 08:14
Creatinine 1.8 mg/dL (0.6-1.0) H 06/12/23 08:14
eGFR 33.27 06/12/23 08:14
Glucose 90 mg/dl (70-99) 06/12/23 08:14
Calcium 8.6 mg/dl (8.4-10.2) 06/12/23 08:14
Albumin 3.3 g/dl (3.5-5.0) L 06/12/23 08:14
Physical Exam
-
Vital Signs:
Vital Signs
Temp Pulse Resp BP Pulse Ox
99.8 F 109 18 117/63 93
06/12/23 11:49 06/12/23 11:49 06/12/23 11:49 06/12/23 11:49 06/12/23 11:49
Cardiovascular:: Regular rate and rhythm
Respiratory:: Bilateral: Coarse
Lung Excursion:: Normal
Abdomen:: Nontender and Soft
Bowel Sounds:: Normal
Extremity Edema:: None: Bilateral:
[2023-06-12 12:59] LABS: Platelet Count 112 10^3/uL (130-400)
[2023-06-12 13:00] LABS: Mean Platelet Volume 9.7 fL (7.4-10.4)
[2023-06-12 13:01] LABS: Absolute Neutrophils -Man Diff 15.3 10^3/uL (1.4-6.5); Band Neutrophils 25 % (0-3); Eosinophils 1 % (0-6); Lymphocytes 4 % (20-51); Monocytes 2 % (2-9); Normal RBC Morphology Yes; Platelets Checked YES; Segmented Neutrophils 68 % (42-75)
[2023-06-12 13:02] LABS: Total Cells Counted 100
--- NOTE | 2023-06-12 13:28 | W.PN.ID1 ---
Date of Service
Date of Service: June 12, 2023
Today's Communication
Continue antibiotics.
Assessment / Plan
Bacteremia with E. coli
Fevers/chills
Suspected complicated urinary tract infection secondary to E. coli
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
HTN
Dyslipidemia
Recommendations:
Continue with cefepime
Repeat blood cultures pending.
Await further culture data to guide antimicrobial selection and de-escalation.
Monitor white count and temperature curve
Chief Complaint
-: UTI and Bacteremia
Subjective / Review of Systems
Review of Systems: No Fever
Vital Signs / Physical Exam
Vital Signs
Vital Signs
Temp Pulse Resp BP Pulse Ox
99.8 F 109 18 117/63 93
06/12/23 11:49 06/12/23 11:49 06/12/23 11:49 06/12/23 11:49 06/12/23 11:49
Physical Exam
Constitutional: Acutely Ill and Non-toxic
Pulmonary: Non Labored
Gastrointestinal: Non Distended
Skin: Negative Rash or Jaundice
Neurological: Other (Resting comfortably; easily arousable.)
Psychological: Calm
Objective Data
Lab Data
Lab Results
06/12/23 08:14
06/12/23 08:14
Estimated Creat Clear 31 ml/min 06/12/23 08:14
Lactic Acid Cancelled 06/11/23 19:40
Total Bilirubin 1.2 mg/dl (0.2-1.3) 06/12/23 08:14
AST 25 U/L (14-36) 06/12/23 08:14
ALT 15 U/L (0-35) 06/12/23 08:14
Alkaline Phosphatase 68 U/L (38-126) 06/12/23 08:14
Most recent labs reviewed.
Micro Results:
06/11/23 03:16 Blood Culture - Preliminary
Blood/Venous Escherichia coli
Gram Stain - Final
06/11/23 03:16 Blood Culture - Preliminary
Blood/Venous Escherichia coli
Gram Stain - Final
06/11/23 02:08 Urine Culture - Preliminary
Urine Escherichia coli
06/11/23 16:49 Blood Culture - Pending
Blood/Venous
06/11/23 16:01 Blood Culture - Pending
Blood/Venous
06/11/23 03:16 Influenza Types A & B (CALVIN) - Final
Nasal Swab Negative for Influenza A & B, NAAT
Negative results must be combined with clinical observations
and patient history.
Nucleic Acid Amplification test (NAAT)performed on the
[employer] platform.
Imaging:
06/11/2023 abdominal x-ray: No abnormal intestinal dilatation or air-fluid levels identified. Air and stool seen in the level of the rectum. Please see full dictation for additional detail.
[2023-06-12 15:21] VITALS: BP 104/61
[2023-06-12 17:29] LABS: Urine Sodium 63 mmol/L (30-90)
[2023-06-12] MEDS: LOVENOX 40 MG SC (17:32)
[2023-06-12 19:17] VITALS: BP 126/68
[2023-06-12 23:52] VITALS: BP 151/82
[2023-06-13] MEDS: NSS 1000 IV (00:09)
[2023-06-13] MEDS: TYLENOL 650 MG PO ×2 (00:10→09:22)
[2023-06-13 03:02] VITALS: BP 156/85
[2023-06-13] MEDS: MAXIPIME 2000 MG IV (05:10)
[2023-06-13] MEDS: STERILE WATER FOR INJECTION 10 ML IV (05:11)
[2023-06-13 06:00] VITALS: BMI 24.3
[2023-06-13 07:10] VITALS: BP 146/80
[2023-06-13 08:50] LABS: Blood Urea Nitrogen 30 mg/dl (7-17); Calcium 8.3 mg/dl (8.4-10.2); Carbon Dioxide 14 mmol/L (22-30); Chloride 113 mmol/L (98-107); Estimated Creatinine Clearance 40 ml/min; Glucose 76 mg/dl (70-99); Potassium 4.4 mmol/L (3.5-5.1); Sodium 135 mmol/L (135-145); eGFR 44.99
[2023-06-13] MEDS: CRESTOR 5 MG PO (09:04)
[2023-06-13] MEDS: NEORAL 25 MG PO ×2 (09:04→20:21)
[2023-06-13] MEDS: PROCARDIA XL (EXTENDED RELEASE) 30 MG PO (09:04)
[2023-06-13] MEDS: NEORAL 100 MG PO ×2 (09:04→20:21)
[2023-06-13] MEDS: DELTASONE 5 MG PO (09:05)
[2023-06-13] MEDS: SODIUM BICARBONATE 1150 MEQ IV (09:22)
[2023-06-13 11:24] VITALS: BP 105/64
--- NOTE | 2023-06-13 11:24 | W.PN.NEPH.PH ---
Today's Communication / Plan
-
IVF
Assessment/Plan
-
Assessment:
Acute kidney injury
Living unrelated renal transplant right lower quadrant [facility] 2007 baseline creatinine 0.8
Hypertension
Hyperlipidemia
Fever
NAGMA
Assessment:
cephalosporins for Ecoli
Follow basic metabolic panel
Await cyclosporine trough level
Cyclosporine and prednisone will be continued
hold losartan still
IV fluids with bicarb
po bicarb as well
-
-
Date of Service: June 13, 2023
CC / HPI / ROS
-
Chief Complaint:
CORAL
History of Present Illness:
CORAL/Cr down to 1.4
on abx for e coli urosepsis
BP stable
now with metabolic acidosis, worse 14
Review of Systems:
no CP/SOB
some abdominal discomfort
Labs
-
Labs:
WBC 16.5 10^3/uL (4.8-10.8) H 06/12/23 08:14
RBC 3.25 10^6/uL (4.20-5.40) L 06/12/23 08:14
Hgb 10.3 g/dL (12.0-16.0) L 06/12/23 08:14
Hct 29.7 % (37.0-47.0) L 06/12/23 08:14
Plt Count 112 10^3/uL (130-400) L D 06/12/23 08:14
Sodium 135 mmol/L (135-145) 06/13/23 05:24
Potassium 4.4 mmol/L (3.5-5.1) 06/13/23 05:24
Chloride 113 mmol/L (98-107) H 06/13/23 05:24
Carbon Dioxide 14 mmol/L (22-30) L* 06/13/23 05:24
BUN 30 mg/dl (7-17) H 06/13/23 05:24
Creatinine 1.4 mg/dL (0.6-1.0) H 06/13/23 05:24
eGFR 44.99 06/13/23 05:24
Glucose 76 mg/dl (70-99) 06/13/23 05:24
Calcium 8.3 mg/dl (8.4-10.2) L 06/13/23 05:24
Albumin 3.3 g/dl (3.5-5.0) L 06/12/23 08:14
Physical Exam
-
Vital Signs:
Vital Signs
Temp Pulse Resp BP Pulse Ox
98.7 F 92 16 146/80 95
06/13/23 07:10 06/13/23 07:10 06/13/23 07:10 06/13/23 07:10 06/13/23 07:10
Cardiovascular:: Regular rate and rhythm
Respiratory:: Bilateral: Coarse
Lung Excursion:: Normal
Abdomen:: Nontender and Soft
Bowel Sounds:: Normal
Extremity Edema:: None: Bilateral:
--- NOTE | 2023-06-13 11:39 | W.PN.HOSP.TC ---
Today's Communication/Plan
-
Antibiotics per ID
Start bicarbonate IV n.p.o.
Bengay neck musculoskeletal pain
Assessment / Plan
Assessment / Plan
#Sepsis likely secondary to E. coli pyelonephritis leading to bacteremia
#Chronic immunosuppressant state
#On chronic prednisone
Lactic acid within normal limits
DC NS.
Monitor blood pressure closely. If any episodes of hypotension will need to start stress dose steroids. Holding BP meds for now.
Continue with cefepime
Susceptibility results with vicente sensitivity. If antibiotics ID.
CT abdomen pelvis with pyelonephritis of transplanted Kidney
ID has been consulted
Last fever on 06/11 at 2352.
Follow-up on the culture data
#Nausea and vomiting likely secondary gastroenteritis versus pyelonephritis pain
Monitor for diet tolerance
Improving.
#Anemia Normocytic
Unclear baseline
b12 and folate wnl
low iron stores-start IV Iron
#Renal transplant 2017
# Acute kidney injury
# Metabolic acidosis likely secondary to acute kidney injury and vomiting
Continue prednisone and cyclosporine dose 125mg BID
DC normal saline as with severe acidosis. Start patient on bicarbonate infusion. P.o. bicarb also added.
Creatinine creatinine improved to 1.4
Nephrology has been consulted
#Hyperlipidemia
Continue statin
#Primary hypertension
Restart Procardia as blood pressure tolerated
Will defer losartan to nephrology
#Hypokalemia
Replete and monitor
DVT ppx-started lovenox
Discussed with at bedside in detail
Anticipated Discharge: > 48 hours
Subjective/Interval History
-
Date of Service: June 13, 2023
States of neck pain and right upper trapezius muscle area pain
States improvement in abdominal discomfort
Tolerating some oatmeal earlier today
Objective Data
-
Labs:
Laboratory Results
06/13/23
05:24
Sodium 135
Potassium 4.4
Chloride 113 H
Carbon Dioxide 14 L*
BUN 30 H
Creatinine 1.4 H
Glucose 76
Calcium 8.3 L
Vital Signs:
Vital Signs
Temp Pulse Resp BP Pulse Ox
98.8 F 102 16 105/64 94
06/13/23 11:24 06/13/23 11:24 06/13/23 11:24 06/13/23 11:24 06/13/23 11:24
I&O
06/12/23 06/13/23 06/14/23
06:59 06:59 06:59
Intake Total 1759
Balance 1759
Physical Exam
-
General: Well Developed and No Apparent Distress
HEENT: Normocephalic, Atraumatic and Moist Mucous Membranes
Respiratory: Clear to Auscultation
Cardiac: Regular Rhythm and S1/S2; Negative Murmur, Rub or Gallop
GI: Soft, Nontender, Nondistended and Normal Bowel Sounds; Negative Organomegaly
Rectal: Deferred by Provider
Musculoskeletal: No Clubbing, No Cyanosis, No Edema and Other (TTP in upper trapezius area )
Skin: Negative Rash
Neuro: Awake, AO x 3, No Motor Deficits and Nonfocal/Grossly Intact
Psych: Calm
Data Reviewed
-
Total Time Spent with Patient (in minutes): 55
[2023-06-13] MEDS: VISBIOME 2 CAP PO (12:31)
[2023-06-13] MEDS: BenGay-Like 1 APPLIC TOPICAL ×2 (12:31→21:05)
[2023-06-13] MEDS: ANCEF 10 IV ×2 (12:31→23:05)
[2023-06-13] MEDS: FERRLECIT 110 MG IV (13:13)
[2023-06-13 14:41] LABS: Urine Albumin Trace (Neg - Trace); Urine Bilirubin Negative (Negative); Urine Character Clear (Clear); Urine Color Yellow; Urine Glucose Negative (Negative); Urine Ketone Negative (Negative); Urine Leukocyte Trace (Negative); Urine Nitrite Negative (Negative); Urine Occult Blood 4+ (Negative); Urine Specific Gravity 1.005 (<1.030); Urine Urobilinogen Negative (Neg - 1+)
[2023-06-13 15:14] LABS: Urine Bacteria Few (Negative); Urine Red Blood Cell 26-30 /HPF (0-2); Urine White Cell 0-2 /HPF (0-5)
[2023-06-13 15:40] VITALS: BP 119/70
[2023-06-13] MEDS: SODIUM BICARBONATE 650 MG PO ×2 (15:57→21:03)
[2023-06-13] MEDS: BenGay-Like TOPICAL (15:58)
[2023-06-13] MEDS: LOVENOX 40 MG SC (17:32)
[2023-06-13 18:18] LABS: Cyclosporine A Results 125.8 ng/mL
[2023-06-13 19:54] VITALS: BP 132/72
[2023-06-13 23:18] VITALS: BP 128/71
[2023-06-14 03:47] VITALS: BP 143/73
[2023-06-14] MEDS: SODIUM BICARBONATE 1150 MEQ IV (04:11)
[2023-06-14 06:00] VITALS: BMI 23.6
[2023-06-14 06:52] LABS: % Basophils 0.4 % (0-2); % Eosinophils 0.7 % (0-6); % Immature Granulocytes 0.6 % (0-0.5); % Lymphocytes 5.8 % (20.5-51.1); % Monocytes 7.1 % (1.7-9.3); % Neutrophils 85.4 % (42.2-75.2); Absolute Eosinophils 0.1 10^3/uL (0-0.7); Absolute Immature Granulocytes 0.1 10^3/uL (0-0.05); Absolute Lymphocytes 0.6 10^3/uL (1.2-3.4); Absolute Monocytes 0.7 10^3/uL (0.1-0.6); Absolute Neutrophils 8.2 10^3/uL (1.4-6.5); Hematocrit 28.3 % (37.0-47.0); Hemoglobin 10.2 g/dL (12.0-16.0); Mean Corpuscular Hgb 31.5 pg (27.0-31.0); Mean Corpuscular Volume 87.3 fL (81.0-99.0); Nucleated Red Blood Cells % 0 %; Red Blood Cell Count 3.24 10^6/uL (4.20-5.40); Red Cell Dist. Width 12.3 % (11.5-14.5); White Blood Cell Count 9.6 10^3/uL (4.8-10.8)
[2023-06-14 07:29] VITALS: BP 146/78
[2023-06-14 07:35] LABS: Blood Urea Nitrogen 22 mg/dl (7-17); Calcium 9.1 mg/dl (8.4-10.2); Carbon Dioxide 23 mmol/L (22-30); Chloride 102 mmol/L (98-107); Estimated Creatinine Clearance 56 ml/min; Glucose 121 mg/dl (70-99); Potassium 3.7 mmol/L (3.5-5.1); Sodium 134 mmol/L (135-145); eGFR > 60.00
[2023-06-14 08:20] LABS: Mean Platelet Volume 10.5 fL (7.4-10.4); Platelet Count 113 10^3/uL (130-400)
[2023-06-14] MEDS: VISBIOME 2 CAP PO (08:26)
[2023-06-14] MEDS: NEORAL 100 MG PO (08:26)
[2023-06-14] MEDS: CRESTOR 5 MG PO (08:26)
[2023-06-14] MEDS: NEORAL 25 MG PO (08:26)
[2023-06-14] MEDS: PROCARDIA XL (EXTENDED RELEASE) 30 MG PO (08:26)
[2023-06-14] MEDS: DELTASONE 5 MG PO (08:27)
[2023-06-14] MEDS: SODIUM BICARBONATE 650 MG PO (08:27)
[2023-06-14] MEDS: BenGay-Like 1 APPLIC TOPICAL (08:28)
[2023-06-14 11:55] VITALS: BP 97/58
--- NOTE | 2023-06-14 12:24 | W.PN.HOSP.TC ---
Today's Communication/Plan
-
Await ID input
Possible discharge later today
Assessment / Plan
Assessment / Plan
#Sepsis likely secondary to E. coli pyelonephritis leading to bacteremia
#Chronic immunosuppressant state
#On chronic prednisone
-CT abdomen pelvis showing mild perinephric inflammation of transplant kidney
-Urine culture and blood culture growing E. coli, sensitivity reviewed
-Patient remains afebrile through the night
-Repeat blood culture has been negative
-Currently on Ancef, discussed with ID.
#Nausea and vomiting likely secondary gastroenteritis versus pyelonephritis related
-Minimal nausea last night after taking oral meds
# Renal transplant 2018
# Acute kidney injury
# Metabolic acidosis likely secondary to acute kidney injury and vomiting - resolved
-Creatinine has normalized
-Nephrology following and help appreciated
#Hyponatremia - mild
#Hyperlipidemia
- Continue statin
#Essential hypertension
- back on procardia, BP on lower side.
#Hypokalemia
Replete and monitor
DVT ppx-started lovenox
Anticipated Discharge: Within 24 hours
Subjective/Interval History
-
Date of Service: June 14, 2023
Resting comfortably in bed
Afebrile overnight
Objective Data
-
Labs:
Laboratory Results
06/14/23
06:30
WBC 9.6
Hgb 10.2 L
Hct 28.3 L
Plt Count 113 L
Sodium 134 L
Potassium 3.7
Chloride 102
Carbon Dioxide 23
BUN 22 H
Creatinine 1.0
Glucose 121 H
Calcium 9.1
Vital Signs:
Vital Signs
Temp Pulse Resp BP Pulse Ox
98.9 F 94 16 97/58 93
06/14/23 11:55 06/14/23 11:55 06/14/23 11:55 06/14/23 11:55 06/14/23 11:55
I&O
06/13/23 06/14/23 06/15/23
06:59 06:59 06:59
Intake Total 2019
Balance 2019
Review of Systems
-
Respiratory: Reports No Symptoms
Cardiac: Reports No Symptoms
Abdomen/GI: Reports No Symptoms
Physical Exam
-
General: No Apparent Distress and Comfortable
HEENT: Negative Oxygen
Respiratory: Clear to Auscultation
Cardiac: Regular Rhythm and S1/S2; Negative Murmur
GI: Soft, Nontender and Nondistended
Neuro: Awake, Alert and Oriented
[2023-06-14 13:05] VITALS: BP 110/62
[2023-06-14] MEDS: ANCEF 10 IV (13:09)
[2023-06-14] MEDS: FERRLECIT 110 MG IV (13:11)
--- NOTE | 2023-06-14 13:34 | W.PN.ID1 ---
Date of Service
Date of Service: June 14, 2023
Today's Communication
Transition to Keflex.
Assessment / Plan
Bacteremia with E. coli
- repeat blood cultures negative.
Fevers/chills
Suspected complicated urinary tract infection secondary to E. coli
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
HTN
Dyslipidemia
Recommendations:
E. coli isolate vicente susceptible. Patient transition to cephalexin yesterday.
Overall appears markedly clinically improved.
Okay to transition to oral Keflex 500 mg 4 times daily, to continue through 06/24.
No objection to discharge from Infectious Diseases standpoint.
Advised patient to follow-up with Customer [facility] and transplant team following discharge.
Chief Complaint
-: UTI and Bacteremia
Subjective / Review of Systems
Patient seen and examined. Reports feeling much improved today. Denies specific complaints.
Review of Systems: No Fever and No Chills
Vital Signs / Physical Exam
Vital Signs
Vital Signs
Temp Pulse Resp BP Pulse Ox
98.9 F 94 16 110/62 93
06/14/23 11:55 06/14/23 11:55 06/14/23 11:55 06/14/23 13:05 06/14/23 11:55
Physical Exam
Constitutional: No Acute Distress, Comfortable and Non-toxic
Head: Normocephalic
Eyes: Sclera Anicteric
Cardiovascular: S1/S2; Negative S3/S4
Pulmonary: Non Labored
Gastrointestinal: Soft and Non Distended
Extremities: Negative Edema, Cyanosis or Erythema
Neurological: Awake and Alert
Psychological: Calm
Objective Data
Lab Data
Lab Results
06/14/23 06:30
06/14/23 06:30
Estimated Creat Clear 56 ml/min 06/14/23 06:30
Lactic Acid Cancelled 06/11/23 19:40
Total Bilirubin 1.2 mg/dl (0.2-1.3) 06/12/23 08:14
AST 25 U/L (14-36) 06/12/23 08:14
ALT 15 U/L (0-35) 06/12/23 08:14
Alkaline Phosphatase 68 U/L (38-126) 06/12/23 08:14
Most recent labs reviewed.
Micro Results:
06/11/23 16:49 Blood Culture - Preliminary
Blood/Venous No Growth in 48 hours- Final report to follow
06/11/23 16:01 Blood Culture - Preliminary
Blood/Venous No Growth in 48 hours- Final report to follow
06/11/23 02:08 Urine Culture - Final
Urine Escherichia coli
06/11/23 03:16 Blood Culture - Final
Blood/Venous Escherichia coli
Gram Stain - Final
06/11/23 03:16 Blood Culture - Final
Blood/Venous Escherichia coli
Gram Stain - Final
06/11/23 03:16 Influenza Types A & B (CALVIN) - Final
Nasal Swab Negative for Influenza A & B, NAAT
Negative results must be combined with clinical observations
and patient history.
Nucleic Acid Amplification test (NAAT)performed on the
[employer] platform.
Imaging:
06/11/2023 abdominal x-ray: No abnormal intestinal dilatation or air-fluid levels identified. Air and stool seen in the level of the rectum. Please see full dictation for additional detail.
Care Review
Plan reviewed with: Physician (Hospitalist)
--- NOTE | 2023-06-14 14:32 | CM ---
MD entered order for discharge.
Spoke with pt and she is ready for discharge today ,
will drive her home.
Offered VN she declined need.
EDITH home no needs
[2023-06-14 14:40] VITALS: BP 113/68
--- NOTE | 2023-06-15 07:36 | W.DCSUMMARY ---
Discharge Summary
Discharge Data
Date of Admission: 06/11/23
Date of Discharge: 06/14/23
-
Pending Results: No
Hospital Course
Discharging Physician : Dr Wilman Childress
Disposition : Home
Primary care physician :
Principal Discharge diagnosis :
Sepsis secondary to Escherichia coli pyelonephritis
Escherichia coli bacteremia and urinary tract infection
Nausea/vomiting
Acute kidney injury
Hypokalemia
Hyponatremia
Metabolic acidosis
Chronic Discharge diagnosis :
History of renal transplant 2018
Hyperlipidemia
Essential hypertension
Hospital Course :
Patient is a 52-year-old female with above-mentioned past medical history came to ER with new onset of fever and chills. Patient did not have any urinary symptoms except some mild lower abdominal pain and episodes of vomiting. Initial testing
showing patient have pyuria and bacteria suggestive of urine tract infection, patient was diagnosed to be septic from this. Patient was started on broad-spectrum antibiotic and nephrology/infectious disease doctors were involved in care. CT of the
pelvis done which showed mild perinephric inflammation of transplant kidney. Urine culture and blood culture growing E. coli. Based on sensitivity patient antibiotics were adjusted to Ancef. After clinical improvement patient was discharged on
oral Keflex therapy.
Patient had minimal acute kidney injury which did not require any further intervention, resolved with IV hydration. For CORAL induced metabolic acidosis patient was provided oral bicarbonate therapy.
Important imaging findings :
None
Procedure findings :
None
Discharge Plan
-
Patient Disposition: Home (Routine Discharge)
Discharge Diagnosis/Procedures: Pyelonephritis of transplant kidney
Condition: Fair
Diet: Low Sodium
Activity: As tolerated
Driving Restrictions: No driving for 24 hours
Bathing Restrictions: OK to Shower
Blood Work: BMP with PCP office
Referrals:
Rafael Allen, [Family Provider] - in one week
Prescriptions:
New
cephalexin 500 mg capsule
500 mg PO Q6H 12 Days Qty: 48 0RF
Continued
prednisone 5 mg Tablet
5 mg PO DAILY
nifedipine 30 mg Tablet Extended Release
30 mg PO DAILY
rosuvastatin 5 mg Tablet
5 mg PO DAILY
cyclosporine modified 50 mg Capsule
150 mg PO BID
Held
losartan 50 mg Tablet
50 mg PO DAILY
Hold Instructions: Resume on 06/21/23. Resume after follow up with Primary care physician
Discharge Orders:
Discharge Patient (As Directed); Ordered 06/14/23
Ordered By: Wilman Childress
Discharge Date and Time
Discharge Date/Time: 06/14/23 15:32
Print Language: ESTONIAN
== END 2023-06-14 15:32 | disposition home or self-care (01) | DRG 872 ==
LOC: 4 EAST ACU 05:53
PROVIDERS: Hospitalist; ADMITTING PHYSICIAN Internal Medicine; ATTENDING PHYSICIAN Hospitalist; EMERGENCY PHYSICIAN Student in an Organized Health Care Education/Training Program; FAMILY PHYSICIAN Family Medicine; OTHER PHYSICIAN Internal Medicine Infectious Disease; OTHER PHYSICIAN Specialist
DX: A41.9 Sepsis, unspecified organism (principal); N39.0 Urinary tract infection, site not specified; T86.19 Other complication of kidney transplant; N17.9 Acute kidney failure, unspecified; Z94.0 Kidney transplant status; E87.20 Acidosis, unspecified; E87.1 Hypo-osmolality and hyponatremia; D64.9 Anemia, unspecified; Y83.0 Surgical operation with transplant of whole organ as the cause of abnormal reaction of the patient, or of later complication, without mention of misadventure at the time of the procedure; E78.5 Hyperlipidemia, unspecified; I10 Essential (primary) hypertension; E87.6 Hypokalemia; Z11.52 Encounter for screening for COVID-19
CPT/HCPCS: 74019; 74176; 76770; 80048; 80053; 80158; 81003; 81015; 82570; 82607; 82728; 82746; 83540; 83550; 83605; 84300; 85025; 87040; 87086; 87088; 87149; 87186; 87205; 87502; 87811; 93005; 94760; 96365; 96375; 99285; J2916

== ENCOUNTER → 2024-02-19 07:39 | Outpatient (REF) | payer OTHER, SELFPAY | LOC: WDC 07:39 | PROVIDERS: ATTENDING PHYSICIAN Obstetrics & Gynecology; FAMILY PHYSICIAN Family Medicine | DX: Z12.31 Encounter for screening mammogram for malignant neoplasm of breast (principal) | CPT/HCPCS: 77063; 77067 ==